=== PATIENT | male | born 1945 | race Caucasian/White ===

== ENCOUNTER 2019-01-16 18:22 | Emergency (ER) | payer OTHER ==
[2019-01-16 19:02] VITALS: BP 0/0; PULSE 0; TEMP 98.1; BMI 22.1
[2019-01-16] MEDS ORDERED: EPINEPHrine 1:10,000 (P-F SYR) 1 MG/10 ML DISP.SYRIN IVPUSH ONE ×4 (19:10→19:14)
[2019-01-16] MEDS ORDERED: ATROPINE SULFATE 1 MG/10 ML DISP.SYRIN IVPUSH ONE ×2 (19:13→19:14)
[2019-01-16] MEDS ORDERED: SODIUM BICARBONATE 8.4% 50 MEQ/50 ML DISP.SYRIN IVPUSH ONE ×2 (19:15)
--- NOTE | 2019-01-16 19:23 | PDOC ---
History of Present Illness - General Chief Complaint: Cardiac Arrest Stated Complaint: CARDIAC ARREST Time Seen by Provider: 01/16/19 18:37 History Source: EMS, [facility] Records Exam Limitations: Intubated, Unresponsive - History of Present Illness Initial Comments: 01/16/19 19:17 73-year-old man was found at the assisted living facility. He was found face down on the floor with no vital signs. At 5:35 PM, the assisted living facility called 911. 911 came and found the patient with no vital signs, in asystole. Resuscitation efforts were instituted. Patient received chest compressions, IV, intubation, and multiple medications in the field. On arrival to the ED, chest compressions were in progress with the Neymar machine. Patient was being ventilated. In the ED, patient was found to be in asystole. Multiple rounds of epinephrine and bicarbonate were given. There was a brief period of agonal bradycardia, but no pulse. Atropine was also given in addition to the bicarbonate, epinephrine, given that the patient had an agonal bradycardia. He went back into asystole and was pronounced . Given the long down time, further aggressive measures were not appropriate or warranted as there was no chance for meaningful recovery. 01/16/19 19:19 Patient with bipolar disorder, obsessive-compulsive disorder, somatic symptoms disorder, mitral valve prolapse, irritable bowel syndrome, diverticulosis, and chronic prostatitis. Past History - Past Medical History Allergies/Adverse Reactions: Allergies Allergy/AdvReac Type Severity Reaction Status Date / Time No Known Allergies Allergy Verified 01/16/19 18:45 Home Medications: Ambulatory Orders Amlodipine Besylate 5 mg PO DAILY 01/16/19 Cyanocobalamin [Vitamin B12 -] 1,000 mcg PO DAILY 01/16/19 Diazepam 2 mg PO DAILY 01/16/19 Dutasteride [Avodart] 0.5 mg PO DAILY 01/16/19 Famotidine 20 mg PO DAILY 01/16/19 Folic Acid 1 mg PO DAILY 01/16/19 Losartan Potassium 50 mg PO DAILY 01/16/19 Olanzapine 10 mg PO DAILY 01/16/19 Polyethylene Glycol 3350 [Miralax (For Daily Use) -] 17 gm PO DAILY 01/16/19 Sennosides [Senna] 8.6 mg PO DAILY 01/16/19 Simvastatin 20 mg PO DAILY 01/16/19 - Suicide/Smoking/Psychosocial Hx Smoking History: Unknown if ever smoked Hx Alcohol Use: No Drug/Substance Use Hx: No *Physical Exam - Vital Signs Last Vital Signs Temp Pulse Resp BP Pulse Ox 98.1 F 0 L 0 L 0/0 L 01/16/19 18:23 01/16/19 18:54 01/16/19 18:54 01/16/19 18:54 - Physical Exam Comments: 01/16/19 19:19 Patient arrived with CPR and ventilation in progress. His down time was known to be at least 40 minutes upon arrival. Color was ashen, no respirations, no pulse, no heart sounds, no visible trauma. Heart Score/ECG Review - ECG Impressions Comment:: 01/16/19 19:20 pvc monitor initially with asystole. During resuscitation efforts, there was a brief period of agonal, wide complex, bradycardia at a rate of 20-25. Next rhythm was again asystole and patient was pronounced. Medical Decision Making - Medical Decision Making 01/16/19 19:21 73-year-old man was found in asystolic cardiac arrest with unknown down time on the floor of the assisted living facility. From the time of the initial [id number], 40 minutes transpired prior to his arrival to the emergency department. At that point the patient was in asystole. Several doses of epinephrine were given with an agonal bradycardia on the monitor. Atropine was given without effect. Further epinephrine and bicarbonate were given without effect. Patient was pronounced . Time of pronouncement was 6:33 PM. There is a patient advocate who lives locally in [place]. I spoke with her, and she said she was the one who wanted to call the patient's sister Michael Marte who lives in [place]. She stated she would speak to the sister and give her the news and that should I should defer that to her. According to the advocate , the family will be calling the home to make arrangements shortly. 01/16/19 19:31 ME contacted, case reported. Case #[id number] 01/16/19 19:31 PMD Charlene called, no response as yet. *DC/Admit/Observation/Transfer Diagnosis at time of Disposition: Cardiac arrest - Discharge Dispostion Disposition: - Referrals - Patient Instructions - Post Discharge Activity
== END 2019-01-16 20:46 | disposition expired ==
LOC: FER 18:22
PROC: 3E033GC Introduction of Other Therapeutic Substance into Peripheral Vein, Percutaneous Approach (ICD-10-PCS; principal; 2019-01-16)
DX: I46.9 Cardiac arrest, cause unspecified (principal); F31.9 Bipolar disorder, unspecified; F42.9 Obsessive-compulsive disorder, unspecified; F45.9 Somatoform disorder, unspecified; I34.1 Nonrheumatic mitral (valve) prolapse; K58.9 Irritable bowel syndrome, unspecified
CPT/HCPCS: 99285-25